=== PATIENT | female | born 1995 | race Caucasian/White ===

== ENCOUNTER → 2024-10-20 | Outpatient (CLI) | payer OTHER ==
[~2024-10-20] MED LIST: AMOCLA875 PO; BIRTH CONTROL; BUPR75 PO; HYDR1TAB94 PO; Sprintec1 EACH PO
[2024-10-20 14:56] LABS: Creatinine, Urine Random 13.1 mg/dL (27.00-270.00); Microalb/Creat Ratio UR, Rand 214.504 mg/g (0.000-30.000); Microalbumin, Random Urine 28.1 mg/L (0.000-20.000)
== END | disposition home or self-care (01) ==
LOC: LAB 13:31 → LAB SHORT 13:31
PROVIDERS: Hospitalist
DX: E11.69 Type 2 diabetes mellitus with other specified complication (principal)
CPT/HCPCS: 82043; 82570

== ENCOUNTER → 2025-01-18 | Outpatient (CLI) | payer OTHER ==
[2025-01-18 15:12] LABS: Bun/Creatinine Ratio 21.1 (12.0-20.0); Calcium, Blood 9.9 mg/dL (8.5-10.1); Creatinine, Blood 0.62 mg/dL (0.40-1.00); Potassium, Blood 4.2 mmol/L (3.5-5.5)
[2025-01-18 17:31] LABS: Creatinine, Urine Random 92.3 mg/dL (27.00-270.00)
[2025-01-18 17:33] LABS: Microalb/Creat Ratio UR, Rand 104.442 mg/g (0.000-30.000); Microalbumin, Random Urine 96.4 mg/L (0.000-20.000)
== END | disposition home or self-care (01) ==
LOC: LAB 08:35 → LAB SHORT 08:35
PROVIDERS: Hospitalist
DX: E11.69 Type 2 diabetes mellitus with other specified complication (principal)
CPT/HCPCS: 80048; 82043; 82570